=== PATIENT | female | born 1935 | race Caucasian/White ===

== ENCOUNTER 2019-02-22 11:20 | Inpatient (IN) | payer MEDICARE ==
[~2019-02-22] VITALS: Ht 157.5 cm; Wt 69.6 kg
[~2019-02-22 11:20] MED LIST: ASCO500 PO; BIOTIN; CALCAVITD PO; CYAN1000 PO; FLAX PO; GLUCHON PO; HYDACE10B PO; LISHYD1012 PO; MELO7.5 PO; NEBI5 PO; Neurontin 300300 MG PO; OMEPRAZOLE MAGN20 MG PO; TOVIAZ; VICOPROFEN PO; ZESTORETIC 20-251 EA PO; ZOLP10 PO
[2019-02-23] MEDS ORDERED: HYDROCODONE-IB1 EACH PO (06:35)
[2019-02-23] MEDS ORDERED: Hydrocodone Bt1 EACH PO (06:37)
--- NOTE | 2019-02-23 06:45 | NUR ---
History, Chart, Medications and Allergies reviewed before start of procedure. Patient confirms NPO status and agrees with scheduled surgery. Lungs clear T/O to Auscultation. Patient reports completing Chlorhexadine shower X2 prior to admission to hospital. Pre-Op teaching done. Pt verbalizes understanding. BELONGINGS UNDER GURNEY IN MARKED BELONGINGS BAG. NO JEWELRY AT ADMIT TO REMOVE.
--- NOTE | 2019-02-23 07:06 | NUR ---
NOZIN SWABS TO BILATERAL NARES IN SDS COMPLETED.
--- NOTE | 2019-02-23 07:07 | NUR ---
TRACKER EXPLAINED TO FRIEND MITZY, OPPORTUNITY FOR QUESTIONS PROVIDED.
--- NOTE | 2019-02-23 07:16 | NUR ---
SAND BLASTER REPORT COMPLETED AT BEDSIDE WITH LATIA HENRIQUEZ.
--- NOTE | 2019-02-23 07:22 | NUR ---
PATIENT UP TO BR FOR UNMEASURED VOID.
--- NOTE | 2019-02-23 07:26 | NUR ---
PATIENT BACK TO BED, NEW WARM BLANKET APPLIED FOR COMFORT. AWAITING DR ARANA'S ARRIVAL.
--- NOTE | 2019-02-23 07:41 | NUR ---
02/23/19 0740 Denise Zamora, RN, PT USED RESTROOM PRIOR TO ENTERING OR4.
--- NOTE | 2019-02-23 14:37 | NUR ---
BLADDER SCAN DONE WITH RESULT SHOWING 266 ML
--- NOTE | 2019-02-23 15:37 | NUR ---
ASSUMED CARE OF PATIENT AT THIS TIME. PT UP TO CHAIR AND TO WORK WITH THERAPY, DENIES PAIN. CONT IV FLUIDS, PT HAS NOT VOIDED YET POST OP. WILL CONT TO MONITOR AND TREAT.
--- NOTE | 2019-02-23 18:30 | NUR ---
PT HAS BEEN STABLE POST OP. PAIN WELL MANAGED WITH PRN AND SCHEDULED MEDS. PT ABLE TO WORK WELL WITH THERAPY. PT UP TO VOID WITH MIN ASSIST TO BATHROOM. PT JUS REG DIET. SL IV PER ORDERS. PAS, TEDS AND POLAR PACK IN PLACE. DRESSING CDI. LABS TO BE DRAWN IN AM. PROBABLE DC TO HOME TOMORROW.
[2019-02-24 04:52] LABS: BASOPHILS PERCENT AUTO 0 % (0-2); EOSINOPHILS ABSOLUTE AUTO 0.01 K/mm3 (0.00-0.68); EOSINOPHILS PERCENT AUTO 0 % (0-6); Hematocrit 24.5 % (33.0-51.0); Hemoglobin 8.3 g/dL (11.5-16.0); IMMATURE GRAN ABSOLUTE AUTO 0.04 K/mm3 (0.00-0.10); IMMATURE GRAN PERCENT AUTO 0 % (0-1); LYMPHOCYTES ABSOLUTE AUTO 0.78 K/mm3 (0.84-5.20); LYMPHOCYTES PERCENT AUTO 7 % (21-46); MONOCYTES ABSOLUTE AUTO 0.77 K/mm3 (0.16-1.47); MONOCYTES PERCENT AUTO 7 % (4-13); Mean Corpuscular HGB 31.9 pg (26.0-34.0); Mean Corpuscular HGB Conc 33.9 g/dL (31.5-36.5); Mean Corpuscular Volume 94 fL (80-100); Mean Platelet Volume 8.5 fL (9.1-12.4); NEUTROPHILS ABSOLUTE AUTO 9.19 K/mm3 (1.96-9.15); NEUTROPHILS PERCENT AUTO 85 % (41-73); Platelet Count 167 K/mm3 (150-400); RDW Coefficient Variation 13.5 % (11.7-14.2); RDW Standard Deviation 45.8 fL (35.1-46.3); White Blood Cell Count 10.79 K/mm3 (4.00-11.30)
[2019-02-24 05:11] LABS: Anion Gap 5 mmol/L (6-16); Blood Urea Nitrogen 22 mg/dL (8-24); Bun/Creatinine Ratio 23.3 (12.0-20.0); CO2, Blood 28 mmol/L (21-32); Calcium, Blood 8.2 mg/dL (8.5-10.1); Chloride, Blood 99 mmol/L (98-108); Creatinine, Blood 0.95 mg/dL (0.40-1.00); Glomerular Filtration Rate >60 (60-); Glucose, Blood 137 mg/dL (70-99); Potassium, Blood 4.7 mmol/L (3.5-5.5); Sodium, Blood 132 mmol/L (136-145)
--- NOTE | 2019-02-24 05:36 | NUR ---
SHIFT SUMMARY PT POD#1. AAOX4. DRESSING TO LEFT HIP C/D/I. PAIN CONTROLLED WITH 5MG OXYCODONE X2 THIS SHIFT. NO NAUSEA/EMESIS. PT SBA WITH FWW UP IN ROOM, TOLERATES WELL. TEDs + SCDs IN PLACE. PT RESTED WELL T/O NIGHT. CALL LIGHT IN REACH + PT USES FOR ASSISTANCE.
--- NOTE | 2019-02-24 08:27 | NUR ---
Pt granted me permission to participate in her care
[2019-02-24] MEDS ORDERED: OXYC5 PO (14:15)
[2019-02-24] MEDS ORDERED: ASPI325 PO (14:18)
--- NOTE | 2019-02-24 14:30 | NUR ---
DISCHARGE PT HAS CLEARED THERAPY, TOLERATING DIET, VOIDING, PAIN WELL MANAGED, SCRIPT & DRSGS GIVEN.
== END 2019-02-24 14:30 | disposition home or self-care (01) | DRG 470 ==
LOC: SURS 02-23 05:57 → PRE IP 02-23 07:30 → SURS 02-23 11:36
PROVIDERS: ADMIT Orthopaedic Surgery
PROC: 0SRB0JZ Replacement of Left Hip Joint with Synthetic Substitute, Open Approach (ICD-10-PCS; principal; 2019-02-23 07:30)
DX: M16.12 Unilateral primary osteoarthritis, left hip (principal); I10 Essential (primary) hypertension; G47.00 Insomnia, unspecified; M19.90 Unspecified osteoarthritis, unspecified site; G89.29 Other chronic pain; M54.9 Dorsalgia, unspecified; N32.81 Overactive bladder; Z79.891 Long term (current) use of opiate analgesic; R26.2 Difficulty in walking, not elsewhere classified
CPT/HCPCS: 36415; 72170; 80048; 83735; 85025; 86850; 86900; 86901; 88300; 97110; 97116; 97162; 97165; 97530; 97535; C1713; C1776; J0171; J0690; J0735; J1100; J1885; J2250; J2370; J2405; J2704; J2795; J3010; J7120

== ENCOUNTER 2020-03-02 11:42 | Day surgery (SDC) | payer MEDICARE ==
[~2020-03-02 11:42] MED LIST changes: +ASCORBIC ACID PO; +ASPI325 PO; +BIOTIN10000 MC1 PO; +DIGOX125 MC1 PO; +FLAX OIL PO; +GLUCOSAMINE PO; +HYDROCODONE-IB1 EACH PO; +Hydrocodone Bt1 EACH PO; +OXYC5 PO; +PYRI100 PO; +WARF5 PO; +[UNRECOGNIZED DRUG - OTHER] PO
[2020-03-02 12:30] LABS: BASOPHILS ABSOLUTE AUTO 0.02 K/mm3 (0.00-0.23); BASOPHILS PERCENT AUTO 0 % (0-2); EOSINOPHILS ABSOLUTE AUTO 0.11 K/mm3 (0.00-0.68); EOSINOPHILS PERCENT AUTO 2 % (0-6); Hematocrit 40.8 % (33.0-51.0); Hemoglobin 13.2 g/dL (11.5-16.0); IMMATURE GRAN ABSOLUTE AUTO 0.02 K/mm3 (0.00-0.10); IMMATURE GRAN PERCENT AUTO 0 % (0-1); LYMPHOCYTES ABSOLUTE AUTO 1.56 K/mm3 (0.84-5.20); LYMPHOCYTES PERCENT AUTO 24 % (21-46); MONOCYTES ABSOLUTE AUTO 0.49 K/mm3 (0.16-1.47); MONOCYTES PERCENT AUTO 8 % (4-13); Mean Corpuscular HGB 31.1 pg (26.0-34.0); Mean Corpuscular HGB Conc 32.4 g/dL (31.5-36.5); Mean Corpuscular Volume 96 fL (80-100); NEUTROPHILS ABSOLUTE AUTO 4.27 K/mm3 (1.96-9.15); NEUTROPHILS PERCENT AUTO 66 % (41-73); Platelet Count 194 K/mm3 (150-400); RDW Coefficient Variation 13.5 % (11.7-14.2); RDW Standard Deviation 47.7 fL (35.1-46.3); Red Blood Cell Count 4.24 M/mm3 (3.80-5.20); White Blood Cell Count 6.47 K/mm3 (4.00-11.30)
[2020-03-02 12:46] LABS: International Normalized Ratio 1.73; Prothrombin Time Results 17.9 Sec (9.7-11.5)
[2020-03-02 12:50] LABS: Anion Gap 5 mmol/L (6-16); Blood Urea Nitrogen 20 mg/dL (8-24); Bun/Creatinine Ratio 23.7 (12.0-20.0); CO2, Blood 29 mmol/L (21-32); Calcium, Blood 8.9 mg/dL (8.5-10.1); Chloride, Blood 104 mmol/L (98-108); Creatinine, Blood 0.84 mg/dL (0.40-1.00); Glomerular Filtration Rate >60 (60-); Glucose, Blood 109 mg/dL (70-99); Sodium, Blood 138 mmol/L (136-145)
[2020-03-02 12:53] LABS: CHOL/HDL RATIO 3.1; Cholesterol 166 mg/dL (50-200); HDL Cholesterol 53 mg/dL (>39); LDL/HDL RATIO 1.8; Low Density Lipoprotein Chol 97 mg/dL (0-110); Triglycerides 81 mg/dL (30-160); Very Low Density Lipoprot Chol 16 mg/dL (6-32)
--- NOTE | 2020-03-02 15:30 | NUR ---
DR. BECERRA PREVIOUSLY AT BEDSIDE, NEW PRESCRIPTIONS RECIEVED, CALLED INTO [facility] PER PT REQUEST. TR BAND REMAINS ON RIGHT WRIST WITH AIR IN. SITE APPEARS TO BE WNL. CALL LIGHT IN REACH.
--- NOTE | 2020-03-02 16:00 | NUR ---
TR BAND FULLY DEFLATED, ARM BOARD REMAINS ON FOR SUPPORT. RIGHT WRIST APPEARS TO BE SOFT NON TENDER WITH NO ACTIVE BLEEDING, OOZING, OR PAIN. TR BAND STILL ON RIGHT WRIST. WILL CONTINUE TO MONITOR.
[2020-03-02] MEDS ORDERED: POTCHL20ER PO (16:36)
[2020-03-02] MEDS ORDERED: FURO20 PO (16:37)
--- NOTE | 2020-03-02 16:45 | NUR ---
PT AMBULATES TO RESTROOM WITH SLOW STEADY GAIT, UNMEASURED VOID, VSS. CALLS RIDE FOR TRANSPORTATION HOME, DISCHARGE INSTRUCTIONS REVIEWED. PT PROVIDED WITH FOLDER TO TAKE HOME, VERBALIZED UNDERSTANDING OF D/C INSTRUCTIONS. RIGHT WRIST REMAINS STABLE.
--- NOTE | 2020-03-02 17:27 | NUR ---
TR BAND REMOVED FROM RIGHT WRIST, RED CLOTH DOT DRESSING APPLIED, ARM BOARD ON FOR SUPPORT. SITE REMAINS SOFT NON TENDER WITH NO ACTIVE BLEEDING. PT IV REMOVED FROM LAC WITH CATH INTACT, PRESSURE DRESSING APPLIED. TAKEN IN W/C OUT TO PRIVATE VEHICLE. ENCOURAGED TO FOLLOW UP WITH DR. BECERRA SCHEDULED. XIOMARA AT TIME OF DISPO.
== END 2020-03-02 17:30 | disposition home or self-care (01) ==
LOC: MHTC 11:42
PROVIDERS: Internal Medicine Cardiovascular Disease
PROC: B201YZZ Plain Radiography of Multiple Coronary Arteries using Other Contrast (ICD-10-PCS; principal; 2020-03-02)
PROC: 4A023N8 Measurement of Cardiac Sampling and Pressure, Bilateral, Percutaneous Approach (ICD-10-PCS; principal; 2020-03-02)
PROC: B206YZZ Plain Radiography of Right and Left Heart using Other Contrast (ICD-10-PCS; principal; 2020-03-02)
PROC: B30SYZZ Plain Radiography of Right Pulmonary Artery using Other Contrast (ICD-10-PCS; principal; 2020-03-02)
DX: I34.0 Nonrheumatic mitral (valve) insufficiency (principal); I25.10 Atherosclerotic heart disease of native coronary artery without angina pectoris; I48.91 Unspecified atrial fibrillation; I10 Essential (primary) hypertension; I83.90 Asymptomatic varicose veins of unspecified lower extremity; E66.3 Overweight; Z79.01 Long term (current) use of anticoagulants; Z79.899 Other long term (current) drug therapy; Z88.8 Allergy status to other drugs, medicaments and biological substances; Z68.27 Body mass index [BMI] 27.0-27.9, adult
CPT/HCPCS: 76376; 80048; 80061; 85025; 85610; 93312; 93325; 93460; 99152; 99153; C1769; C1894; J1644; J2250; J3010; J7030; Q9967

== ENCOUNTER 2020-06-12 15:39 | Emergency (ER) | payer MEDICARE ==
[~2020-06-12] VITALS: Ht 157.5 cm; Wt 66.2 kg
[~2020-06-12 15:39] MED LIST changes: +Amiodarone HCl200 MG PO; +Aspirin EC81 MG PO; -BIOTIN10000 MC1 PO; +CEPH500 PO; +ELIQUIS2.5 MG PO; +FURO20 PO; +FURO40 PO; +MERIBIN5 M1 PO; +POTCHL20ER PO; +SPIR25 PO; +TORS10
[2020-06-12 16:33] LABS: Source, Urine Clean Catch
[2020-06-12 16:39] LABS: Bilirubin, Urine Neg (Neg); Blood, Urine Neg (Neg); Glucose Qualitative, Urine Neg (Neg); Ketones, Urine Neg (Neg); Leukocyte Esterase, Urine Neg (Neg); Nitrite, Urine Neg (Neg); Protein, Urine Neg (Neg); Urobilinogen, Urine NORM (Normal)
[2020-06-12 16:40] LABS: Appearance, Urine Hazy (Clear); Color, Urine Yellow (P-Yellow)
[2020-06-12 16:41] LABS: Bacteria Mod /hpf; Mucus Light (0-Heavy); Red Blood Cells, Urine Not Seen /hpf (0-2); Squamous Epithelial Cells Rare /hpf (Few); White Blood Cells, Urine 0-2 /hpf (0-5)
[2020-06-12 16:58] LABS: BASOPHILS ABSOLUTE AUTO 0.03 K/mm3 (0.00-0.23); BASOPHILS PERCENT AUTO 0 % (0-2); EOSINOPHILS ABSOLUTE AUTO 0.15 K/mm3 (0.00-0.68); EOSINOPHILS PERCENT AUTO 2 % (0-6); Hemoglobin 9.5 g/dL (11.5-16.0); IMMATURE GRAN ABSOLUTE AUTO 0.03 K/mm3 (0.00-0.10); IMMATURE GRAN PERCENT AUTO 0 % (0-1); LYMPHOCYTES ABSOLUTE AUTO 1.28 K/mm3 (0.84-5.20); LYMPHOCYTES PERCENT AUTO 17 % (21-46); MONOCYTES ABSOLUTE AUTO 0.72 K/mm3 (0.16-1.47); MONOCYTES PERCENT AUTO 9 % (4-13); Mean Corpuscular HGB 29.5 pg (26.0-34.0); Mean Corpuscular HGB Conc 30.6 g/dL (31.5-36.5); Mean Corpuscular Volume 96 fL (80-100); Mean Platelet Volume 9.8 fL (9.1-12.4); NEUTROPHILS ABSOLUTE AUTO 5.57 K/mm3 (1.96-9.15); NEUTROPHILS PERCENT AUTO 72 % (41-73); Platelet Count 200 K/mm3 (150-400); RDW Coefficient Variation 17.2 % (11.7-14.2); RDW Standard Deviation 61.2 fL (35.1-46.3); Red Blood Cell Count 3.22 M/mm3 (3.80-5.20); White Blood Cell Count 7.78 K/mm3 (4.00-11.30)
[2020-06-12 17:18] LABS: Albumin, Blood 3.5 g/dL (3.4-5.0); Albumin/Globulin Ratio 0.9 (0.8-1.8); Bilirubin, Total 0.8 mg/dL (0.1-1.0); Bun/Creatinine Ratio 22.5 (12.0-20.0); Calcium, Blood 9.4 mg/dL (8.5-10.1); Creatinine, Blood 1.2 mg/dL (0.40-1.00); Total Protein, Blood 7.5 g/dL (6.4-8.2)
[2020-06-19] MEDS ORDERED: NEBI5 PO (19:14)
[2020-06-19] MEDS ORDERED: PACERONE100 M1 PO (19:14)
[2020-06-19] MEDS ORDERED: Aspirin EC81 MG PO (19:18)
[2020-06-19] MEDS ORDERED: FERSU300 PO (19:21)
[2020-06-19] MEDS ORDERED: Milk Of Ma400 MG/5 M (19:22)
[2020-06-19] MEDS ORDERED: MULTI VITAMIN1 EACH PO (19:23)
[2020-06-19] MEDS ORDERED: TORSE20 PO (19:29)
[2020-06-19] MEDS ORDERED: K-Dur 20 meq T20 MEQ PO (19:30)
[2020-06-22] MEDS ORDERED: ELIQUIS5 MG PO (10:57)
[2020-06-22] MEDS ORDERED: Amiodarone HCl200 MG PO (10:57)
[2020-06-22] MEDS ORDERED: NEBI5 PO (10:58)
[2020-06-22] MEDS ORDERED: POTCHL20ER PO (10:58)
[2020-06-22] MEDS ORDERED: ZOLP5 PO (10:59)
[2020-06-22] MEDS ORDERED: TORSE20 PO (10:59)
[2020-06-22] MEDS ORDERED: TRAZ50 PO (11:00)
[2020-06-22] MEDS ORDERED: PROBIOTIC PO (11:00)
[2020-06-22] MEDS ORDERED: CEFU500T30 PO (11:00)
== END 2020-06-12 19:26 | disposition home or self-care (01) ==
LOC: ER 15:39
PROVIDERS: Physician Assistant
DX: R42 Dizziness and giddiness (principal); E86.0 Dehydration; Z88.8 Allergy status to other drugs, medicaments and biological substances; Z79.82 Long term (current) use of aspirin; Z79.899 Other long term (current) drug therapy; I48.91 Unspecified atrial fibrillation; I10 Essential (primary) hypertension; Z79.2 Long term (current) use of antibiotics
CPT/HCPCS: 36415; 70450; 71045; 80053; 81001; 85025; 87086; 93005; 93010; 99285-25; J7030

== ENCOUNTER 2020-08-04 11:37 | Inpatient (IN) | payer MEDICARE ==
[~2020-08-04] VITALS: Ht 157.5 cm; Wt 65.6 kg
[~2020-08-04 11:37] MED LIST changes: +CEFU500T30 PO; +ELIQUIS5 MG PO; +FERSU300 PO; +K-Dur 20 meq T20 MEQ PO; +MULTI VITAMIN1 EACH PO; +Milk Of Ma400 MG/5 M; +PACERONE100 M1 PO; +PROBIOTIC PO; +TORSE20 PO; +TRAZ50 PO
[2020-08-04 12:30] LABS: BASOPHILS ABSOLUTE AUTO 0.03 K/mm3 (0.00-0.23); BASOPHILS PERCENT AUTO 1 % (0-2); EOSINOPHILS PERCENT AUTO 0 % (0-6); Hematocrit 33.2 % (33.0-51.0); Hemoglobin 10.4 g/dL (11.5-16.0); IMMATURE GRAN ABSOLUTE AUTO 0.02 K/mm3 (0.00-0.10); IMMATURE GRAN PERCENT AUTO 0 % (0-1); LYMPHOCYTES ABSOLUTE AUTO 1.22 K/mm3 (0.84-5.20); LYMPHOCYTES PERCENT AUTO 19 % (21-46); MONOCYTES ABSOLUTE AUTO 0.63 K/mm3 (0.16-1.47); MONOCYTES PERCENT AUTO 10 % (4-13); Mean Corpuscular HGB 29.8 pg (26.0-34.0); Mean Corpuscular HGB Conc 31.3 g/dL (31.5-36.5); Mean Corpuscular Volume 95 fL (80-100); Mean Platelet Volume 10.3 fL (9.1-12.4); NEUTROPHILS ABSOLUTE AUTO 4.64 K/mm3 (1.96-9.15); NEUTROPHILS PERCENT AUTO 71 % (41-73); Platelet Count 145 K/mm3 (150-400); RDW Coefficient Variation 19.2 % (11.7-14.2); RDW Standard Deviation 67.4 fL (35.1-46.3); Red Blood Cell Count 3.49 M/mm3 (3.80-5.20); White Blood Cell Count 6.54 K/mm3 (4.00-11.30)
[2020-08-04 12:47] LABS: Albumin, Blood 3.5 g/dL (3.4-5.0); Albumin/Globulin Ratio 0.9 (0.8-1.8); Bun/Creatinine Ratio 27.4 (12.0-20.0); Creatinine, Blood 1.17 mg/dL (0.40-1.00); Globulin, Blood 3.8 g/dL (2.2-4.0); Total Protein, Blood 7.3 g/dL (6.4-8.2)
[2020-08-04 13:58] LABS: Source, Urine Clean Catch
[2020-08-04 14:04] LABS: Bilirubin, Urine Neg (Neg); Blood, Urine Neg (Neg); Glucose Qualitative, Urine Neg (Neg); Ketones, Urine Neg (Neg); Leukocyte Esterase, Urine Neg (Neg); Nitrite, Urine Neg (Neg); Protein, Urine Neg (Neg); Urobilinogen, Urine NORM (Normal)
[2020-08-04 14:10] LABS: Appearance, Urine Clear (Clear); Color, Urine Yellow (P-Yellow)
--- NOTE | 2020-08-04 17:18 | NUR ---
family called stating pt back in ER and having more pain. went to er to see pt will follow up with admit care.
[2020-08-04] MEDS ORDERED: NEBI5 PO (18:29)
[2020-08-04] MEDS ORDERED: TORSE20 PO (18:30)
[2020-08-04] MEDS ORDERED: ZOLP5 PO (18:30)
--- NOTE | 2020-08-05 05:19 | NUR ---
COPPERSMITH APPRENTICE SUMMARY PT ARRIVED ON THE FLOOR DENYING ANY PAIN, ONE HOUR LATER SHE REPORTED INTENSE 10/10 PAIN. THE PT'S ABDOMIN WAS RIDGID AND THE PROVIDER WAS CONTACTED TO EVALUATE THE PT AND TO OBTAIN AN ORDER FOR PAIN MEDICATION. THE PROVIDE, "JÚNIOR", BELEIVED THAT THE PT IS EXPERIENCING THE BEGINNING OF A BOWEL OBSTRUCTION AND ORDERED A SUPPOSITORY WELL IV DILUADID. THE PAIN MEDICATION RELIEVED THE PT'S PAIN FOR THE DURATION OF THE SHIFT HOWEVER THE PT ONLY VOIDED THREE VERY SMALL HARD STOOLS. PT DENIES ANY PAIN OR SOB AT THE MOMENT AND IS RESTING COMFORTABLY IN BED W CALL LIGHT IN PLACE.
[2020-08-05 05:37] LABS: BASOPHILS ABSOLUTE AUTO 0.02 K/mm3 (0.00-0.23); BASOPHILS PERCENT AUTO 0 % (0-2); EOSINOPHILS PERCENT AUTO 0 % (0-6); Hematocrit 29.9 % (33.0-51.0); Hemoglobin 9.2 g/dL (11.5-16.0); IMMATURE GRAN ABSOLUTE AUTO 0.02 K/mm3 (0.00-0.10); IMMATURE GRAN PERCENT AUTO 0 % (0-1); LYMPHOCYTES ABSOLUTE AUTO 1.28 K/mm3 (0.84-5.20); LYMPHOCYTES PERCENT AUTO 24 % (21-46); MONOCYTES ABSOLUTE AUTO 0.61 K/mm3 (0.16-1.47); MONOCYTES PERCENT AUTO 12 % (4-13); Mean Corpuscular HGB Conc 30.8 g/dL (31.5-36.5); Mean Corpuscular Volume 97 fL (80-100); Mean Platelet Volume 10.1 fL (9.1-12.4); NEUTROPHILS ABSOLUTE AUTO 3.33 K/mm3 (1.96-9.15); NEUTROPHILS PERCENT AUTO 63 % (41-73); Platelet Count 126 K/mm3 (150-400); RDW Coefficient Variation 19.5 % (11.7-14.2); Red Blood Cell Count 3.07 M/mm3 (3.80-5.20); White Blood Cell Count 5.26 K/mm3 (4.00-11.30)
[2020-08-05 05:47] LABS: Bun/Creatinine Ratio 21.4 (12.0-20.0); Calcium, Blood 8.8 mg/dL (8.5-10.1); Creatinine, Blood 1.17 mg/dL (0.40-1.00); Potassium, Blood 3.3 mmol/L (3.5-5.5)
--- NOTE | 2020-08-05 18:17 | NUR ---
SHIFT SUMMARY NO ACUTE CONCERNS. PATIENT HAS DENIED PAIN TODAY. SHE IS NO LONGER ON IV FLUIDS. SHE REPORTS PAIN IN HER ABDOMEN BUT HAS NOT REQUIRED PAIN MEDICATION TODAY. SHE HAS BEEN UP AND WALKING AROUND. SHE IS CURRENTLY EATING WELL AND HAS SPOKEN WITH THE DOCTOR ABOUT HER CONCERNS.
[2020-08-05 23:30] LABS: PCO2 Arterial 51.1 mmHg (35-45); PO2 Arterial 59.1 mmHg (80-100); pH Blood Arterial 7.34 (7.35-7.45)
[2020-08-05 23:41] LABS: Hematocrit 34.3 % (33.0-51.0); Hemoglobin 10.7 g/dL (11.5-16.0); Mean Corpuscular HGB 30.1 pg (26.0-34.0); Mean Corpuscular HGB Conc 31.2 g/dL (31.5-36.5); Mean Corpuscular Volume 96 fL (80-100); Platelet Count 161 K/mm3 (150-400); RDW Coefficient Variation 19.1 % (11.7-14.2); Red Blood Cell Count 3.56 M/mm3 (3.80-5.20)
[2020-08-06 00:01] LABS: Albumin, Blood 3.8 g/dL (3.4-5.0); Anion Gap 9 mmol/L (6-16); Blood Urea Nitrogen 24 mg/dL (8-24); Bun/Creatinine Ratio 22.4 (12.0-20.0); CO2, Blood 27 mmol/L (21-32); Calcium, Blood 9.4 mg/dL (8.5-10.1); Chloride, Blood 99 mmol/L (98-108); Creatinine, Blood 1.07 mg/dL (0.40-1.00); Glomerular Filtration Rate 52 (60-); Glucose, Blood 201 mg/dL (70-99); Phosphorus, Blood 3.2 mg/dL (2.5-4.9); Potassium, Blood 3.5 mmol/L (3.5-5.5); Sodium, Blood 135 mmol/L (136-145)
--- NOTE | 2020-08-06 00:09 | NUR ---
MEDICAL FLOOR NOTE PT BEGAN THE SHIFT DENYING ANY PAIN OR NAUSEA. ONE HOUR INTO THE SHIFT THE PT C/O A SEVERE HEADACHE AND WAS GIVEN 0.5 DILAUDID IV. IN THE PROCESS OF GIVING THE MEDICATION IT WAS DISCOVERED THAT THE PT'S IV IN HER RIGHT AC WAS NO LONGER PATENT. WHEN THE IV WAS WITHDRAWN FROM THE PT A LARGE STREAM OF BLOOD SQUIRTED FROM THE PT'S ARM SO GUAZE AND PRESSURE WAS APPLIED UNTIL ASSISTANCE COULD ARRIVE TO HELP. A PRESSURE DRESSING AND A SAND BAG WERE APPLIED SINCE THE LINE WAS APPARENTLY IN AN ARTERY AND THE BLEEDING WOULD NOT STOP. SHORTLY AFTER THE DILUADID WAS GIVEN THE PT REPORTED NAUSEA SO ZOFRAN WAS GIVEN W LITTLE RELIEF INITIALLY AND VITAL SIGN SHOWED ELEVATED BP OF 178/82. AFTER OBTAINING AN ORDER FOR HYDRALAZINE AND INCREASED ZOFRAN THE VITAL SIGNS WERE CHECKED AGAIN SHOWING INCREASED BP OF 177/104 HOWEVER THE PT REPORTED DECREASED NAUSEA. I WENT TO RETRIEVE THE HYDRALAZINE AND ZOFRAN AND WHEN I RETURNED APPROXIMATELY 15 MINUTES LATER I FOUND THE PT UNRESPONSIVE W WET/GURGLING BREATH SOUNDS. RAPID RESPONSE WAS CALLED AND TEAM ARRIVED TO RM [id number].
--- NOTE | 2020-08-06 00:43 | NUR ---
TRANSFER FROM MEDICAL PT TRANFERRED TO UNIT FROM MEDICAL D/T RAPID RESPONSE. WHILE ON MEDICAL FLOOR PT BECAME NON-RESPONSIVE. REPORT RECIEVED FROM ICU NURSE UPON TRANSFER. PT CURRENLTY ON BIPAP WITH 2 L OF OXYGEN. PT DOES NOT REPOND TO VERBAL STIMULI. PT WILL REPONDE TO NOXIOUS STIMULI AT THIS TIME.
[2020-08-06 04:08] LABS: Albumin, Blood 3.5 g/dL (3.4-5.0); Anion Gap 5 mmol/L (6-16); Blood Urea Nitrogen 22 mg/dL (8-24); Bun/Creatinine Ratio 21.6 (12.0-20.0); CO2, Blood 32 mmol/L (21-32); Calcium, Blood 8.9 mg/dL (8.5-10.1); Chloride, Blood 99 mmol/L (98-108); Creatinine, Blood 1.02 mg/dL (0.40-1.00); Glomerular Filtration Rate 55 (60-); Glucose, Blood 182 mg/dL (70-99); Phosphorus, Blood 2.7 mg/dL (2.5-4.9); Potassium, Blood 3.2 mmol/L (3.5-5.5); Sodium, Blood 136 mmol/L (136-145)
--- NOTE | 2020-08-06 06:27 | NUR ---
SHIFT SUMMARY PT TRANSPORTED TO UNIT FROM MEDICAL FLOOR D/T RAPID RESPONSE. PT REMAINS UNRESPONSIVE TO VERBAL STIMULI. WILL RESOND TO NOXIOUS OR PAINFUL STIMULI. NO PUPIL RESPONSE. PT'S HR STABLE. BP STABLE. PT CURRENLTY ON 2 L OF OXYGEN VIA BIPAP. OXYGEN SATURATION REMAINS ABOVE 92%. CHARGE NURSE NOTIFIED PT'S EMERGENCY CONTACT ON PT'S STATUS. PT REPOSITIONED Q 2 HRS. WILL CONTINUE TO MONITOR UNRIL REPORT GIVEN TO DAYSHIFT RN.
--- NOTE | 2020-08-06 07:02 | NUR ---
UPDATE DR MELISSA NOTIFIED THAT PATIENT'S PUPILS ARE NOT RESPONDING TO LIGHT AND THAT PATIENT IS STILL NONE UNRESPONSIVE. PATIENT WILL SLIGHTLY PULL AWAY WHEN THE BOTTOM OF HER FEET ARE LIGHTLY BRUSHED. DR MELISSA ENTERED ORDERS. DR MELISSA UPDATED ON PATIENT'S POTASSIUM LEVEL WELL. ORDERS RECEIVED.
--- NOTE | 2020-08-06 08:01 | NUR ---
PT TO CT AT THIS TIME. SISTER AND SAM AT BEDSIDE.
--- NOTE | 2020-08-06 08:33 | NUR ---
COMFORT CARE: FOXING CUTTING MACHINE OPERATOR CALLED AND VERAFIED A POSITIVE BLEED. DR GARRETT CALLED AND NOTIFIED PRIOR TO RADIOLOGY CALLING HER. PT RETURNS FROM CT PINK IN COLOR, NO ACUTE DISTRESS NOTED, BREATHING APPEARS THE SAME PRIOR TO LEAVING THE FLOOR. PT PLACED BACK ON BIPAP TO ASSIST WITH BREATHING, O2 SATS NOTED TO BE 88%. DR GARRETT RECEIVED CALL FROM RADIOLOGIST THEN TALKED WITH FAMILY ABOUT RESULTS. FAMILY DECIDES TO PLACE PT ON COMFORT CARE. JC FROM [facility] NOTIFIED AND IN ROOM TALKING TO FAMILY AT THIS TIME.
--- NOTE | 2020-08-06 08:55 | NUR ---
Spoke with Bedside RN Julia and discussed case. Plan is for Pt to transition to comfort care. Spoke with Dr Polo and discussed case. Pt had a severe stroke with midline shift. Dr Polo will place comfort care order, medications for comfort, and will transfer Pt to medical floor. Pt resting in bed with her eyes closed and is non responsive during this RN's visit. Pt's sister Rony and niece Petra are at bedside. Family tearful and this RN offered emotional support. Provided gentle education on comfort care philosophy with V/U made by family. Educated on potential S/S Pt may experience. Discussed the importance of speaking with Pt and offering reasurance. Family expresses appreciation of visit, no other concerns reported at this time. Palliative Care will remain available for symptom management and therapeutic visits.
--- NOTE | 2020-08-06 15:37 | NUR ---
Supportive F/U visit. Pt resting in bed with her eyes closed and is non responsive. Pt appears comfortable with no S/S of distress at this time. Pt's niece at bedside and offered emotional support. Family reports no concerns at this time. Palliative Care will remain available for symptom managemenet.
--- NOTE | 2020-08-07 01:11 | NUR ---
PHYSICIAN NOTIFIED PT HAD INCREASE IN RESPIRATORY SECRETIONS. PHYSICIAN NOTIFIED. ATROPINE GTTS ORDERED.
--- NOTE | 2020-08-07 05:57 | NUR ---
SHIFT SUMMARY PT SLEPT T/O SHIFT. PT PROVIDED WITH SUCTIONING Q 2 HRS AND NEEDED. ORAL CARE PROVIDED Q 2 HRS AND NEEDED. PT REPOSITIONED Q 2 HRS. FAMILY AT BEDSIDE T/O NIGHT. PT APPEARS TO HAVE NO DISTRESS OR DISCOMFOR T/O NIGHT. WILL CONTINUE TO MONITOR UNTIL REPORT GIVEN TO DAYSHIFT RN.
--- NOTE | 2020-08-07 08:54 | NUR ---
pt comfortable. family requesting home on hospice. They have used amedysis in the past. updated day care center director will assist with plan.
--- NOTE | 2020-08-07 12:01 | NUR ---
supportive visit with family plan is to discharege on hospice.
== END 2020-08-07 12:10 | disposition hospice, home (50) | DRG 189 ==
LOC: ER 11:37 → MEDS 11:38 → PCU 08-05 23:49
PROVIDERS: Internal Medicine; Physician Assistant; ADMIT Hospitalist
PROC: 3E0234Z Introduction of Serum, Toxoid and Vaccine into Muscle, Percutaneous Approach (ICD-10-PCS; principal; 2020-08-04)
PROC: 5A09357 Assistance with Respiratory Ventilation, Less than 24 Consecutive Hours, Continuous Positive Airway Pressure (ICD-10-PCS; 2020-08-06)
DX: J96.01 Acute respiratory failure with hypoxia (principal); I61.9 Nontraumatic intracerebral hemorrhage, unspecified; I13.0 Hypertensive heart and chronic kidney disease with heart failure and stage 1 through stage 4 chronic kidney disease, or unspecified chronic kidney disease; I50.32 Chronic diastolic (congestive) heart failure; Z95.4 Presence of other heart-valve replacement; Z96.643 Presence of artificial hip joint, bilateral; Z66 Do not resuscitate; D69.6 Thrombocytopenia, unspecified; E87.6 Hypokalemia; D63.1 Anemia in chronic kidney disease; Z51.5 Encounter for palliative care; N18.9 Chronic kidney disease, unspecified; Z23 Encounter for immunization; N18.30 Chronic kidney disease, stage 3 unspecified; T17.918A Gastric contents in respiratory tract, part unspecified causing other injury, initial encounter; X58.XXXA Exposure to other specified factors, initial encounter; Y92.230 Patient room in hospital as the place of occurrence of the external cause
CPT/HCPCS: 36415; 36600; 70450; 71045; 71046; 71260; 74018; 74176; 76705; 80048; 80053; 80069; 81003; 82803; 83690; 83880; 84145; 85025; 85027; 93005; 93010; 94660; 94762; 96365-59; 96368; 96375; 96375-59; 99285-25; A9270; A9270-GY; G0008; G0378; J0456; J0696; J1170; J1940; J2405; J7030; J7050; Q2038; Q9967